=== PATIENT | female | born 1985 | race African-American/Black ===

== ENCOUNTER 2025-02-24 22:03 | Emergency (ER) | payer SELFPAY ==
[~2025-02-24] VITALS: Ht 165.1 cm; Wt 62.2 kg
[2025-02-24 22:17] VITALS: BP 129/96; RESP 16; TEMP 36.8; O2SAT 100
[2025-02-24 22:30] VITALS: PULSE 94; O2SAT 100
== END 2025-02-25 03:00 | disposition left against medical advice (07) ==
LOC: ER 22:03
DX: R68.89 Other general symptoms and signs (principal); Z53.21 Procedure and treatment not carried out due to patient leaving prior to being seen by health care provider